=== PATIENT | female | born 1955 ===

== ENCOUNTER 2019-04-18 16:19 | Observation (INO) | payer OTHER, SELFPAY ==
[~2019-04-18 16:19] MED LIST: ADENOSINE 60 MG/20 ML VIAL ONE
[2019-04-18 17:50] LABS: ALT (SGPT) 23 U/L (8-55); AST (SGOT) 20 U/L (5-34); Albumin 4.3 g/dL (3.4-4.8); Alkaline Phosphatase 96 U/L (40-110); Anion Gap 10 mmol/L (10-20); BUN (Urea Nitrogen) 8 mg/dL (9.8-20.1); Bilirubin, Total 0.5 mg/dL (0.2-1.2); Calc. Creatinine Clearance 0 mL/min (70-130); Calcium 9.7 mg/dL (7.8-10.44); Carbon Dioxide 27 mmol/L (23-31); Chloride 108 mmol/L (98-107); Estimated GFR-MDRD 86; Glucose 124 mg/dL (80-115); Lipase 23 U/L (8-78); Potassium 4.1 mmol/L (3.5-5.1); Protein, Total 7.3 g/dL (6.0-8.3); Sodium 141 mmol/L (136-145)
--- NOTE | 2019-04-18 17:51 | CT ---
CT HEAD WITHOUT IV CONTRAST COMPARISON: None HISTORY: Headache. TECHNIQUE: Axial CT imaging at 5 mm intervals from vertex through skull base without contrast FINDINGS: There is no evidence of an acute infarction, hemorrhage, mass effect, or midline shift. The ventricul ar system is normal in size, shape, and position. Visualized paranasal sinuses are clear. Osseous structures appear intact. IMPRESSION: 1. No acute intracranial abnormality demonstrated.
--- NOTE | 2019-04-18 17:51 | RAD ---
EXAM: CHEST ONE VIEW HISTORY: Chest pain. Headache and weakness. Acid reflux. COMPARISON: None FINDINGS: The cardiac silhouette and pulmonary vasculature is within normal limits. The lungs are clear. The os seous structures are intact. IMPRESSION: No acute cardiopulmonary process.
[2019-04-18 17:53] LABS: #Basophils 0.1 thou/uL (0.0-0.2); #Lymphocytes 2.4 thou/uL (1.20-3.40); #Monocytes 0.4 thou/uL (0.11-0.59); #Neutrophils 3.7 thou/uL (1.40-6.50); %Basophils 1.1 % (0.0-1.0); %Eosinophils 0.2 % (0.0-10.0); %Lymphocytes 36.8 % (21.0-51.0); %Monocytes 5.6 % (0.0-10.0); %Neutrophils 56.3 % (42.0-75.0); Hemoglobin 13.8 g/dL (12.0-16.0); Mean Corpuscular HGB CONC 34.7 g/dL (32.0-36.0); Mean Corpuscular Hemoglobin 29.6 pg (27.0-31.0); Mean Corpuscular Volume 85.4 fL (78.0-98.0); Mean Platelet Volume 10.7 fL (7.4-10.4); Platelet Count 145 thou/uL (130-400); RBC Distribution Width 12.1 % (11.5-14.5); Red Blood Cell (RBC) Count 4.66 mill/uL (4.20-5.40); White Blood Cell (WBC) Count 6.6 thou/uL (4.8-10.8)
[2019-04-18] MEDS ORDERED: Nitroglycerin 0.4 MG TAB 1 EACH ONE (18:10)
[2019-04-18] MEDS ORDERED: Aspirin Chewable 81 MG TAB ONE (18:10)
[2019-04-18 18:43] LABS: Bacteria/HPF None Seen HPF (None Seen); Bilirubin Negative (Negative); Blood, Urine 1+ (Negative); Clarity Clear (Clear); Glucose, Urine (Dipstick) Normal (Negative); Leukocyte 75 Leu/uL (Negative); Nitrite Negative (Negative); Protein, Urine (Dipstick) Negative (Neg-Trace); Squamous Epithelial 0-3 HPF (0-3); Urobilinogen Normal mg/dL (Less than 2); WBC/HPF 0-3 HPF (0-3)
[2019-04-18] MEDS ORDERED: Acetaminophen 325 MG TAB ONE (18:45)
[2019-04-18 20:57] LABS: Troponin I 0.017 ng/mL (< 0.028)
[2019-04-18] MEDS ORDERED: Ondansetron PF 4 MG/2 ML Vial IVP PRN (21:56)
[2019-04-18] MEDS ORDERED: Acetaminophen 325 MG TAB PO PRN (21:56)
[2019-04-18] MEDS ORDERED: Acetaminophen 650 MG Suppository PR PRN (21:56)
[2019-04-18] MEDS ORDERED: Ondansetron ODT 4 MG TAB PO PRN (21:56)
[2019-04-18] MEDS ORDERED: Sodium Chloride 0.9% 1,000 ML IV SCH (22:00)
[2019-04-18] MEDS ORDERED: HumaLOG 300 UNITS/3 ML VIAL SC PRN ×2 (22:02)
[2019-04-18] MEDS ORDERED: Dextrose 50% Abboject 50 ML SYRINGE SLOW IVP PRN (22:02)
[2019-04-18] MEDS ORDERED: Dextrose 5% in Water 1,000 ML IV PRN (22:02)
[2019-04-18 22:08] VITALS: BMI 28.5
--- NOTE | 2019-04-18 22:49 | PDOC.HHP ---
Hospitalist HPI - History of Present Illness Headache and left chest pain History of Present Illness: Ms. Salgado reports having intermittent headaches for the last couple of days. Reports right sided chest pain and arm pain which she states was mild and describes it as a pressure. Unable to quantify it. States it lasted 5 min. Did not take anything for it. Also reports a cold sensation on the right side of her face and feeling tired/ generally weak. Denies spinning sensation but states she felt "drunk". Reports feeling like she would not be able to walk but family deny any ataxia or gait disturbance. No speech changes. Reports blurred vision that was brief. Does not know the timing of any of her symptoms. She saw her PCP yesterday and was advised to come to the ED if she felt badly again today. She states what prompted the visit to her PCP was having burning epigastric discomfort early hours yesterday morning at 3am. She was advised to increase her protonix to two tablets in the AM. No extremity numbness or weakness. At present she is completely asymptomatic. ED Course: Given Aspirin in the ED CT head done was normal. EKG unremarkable and initial troponin negative. Hospitalist ROS - Review of Systems Constitutional: reports: chills (one episode of chills this morning, said she felt cold). denies: fever, sweats, weakness, malaise, other Eyes: reports: other (eye heaviness, reports difficulty keeping her eyes open, denies facial drooping). denies: pain, vision change, conjunctivae inflammation , eyelid inflammation, redness ENT: denies: ear pain, ear discharge, nose pain, nose discharge, nose congestion , mouth pain, mouth swelling, throat pain, throat swelling, other Respiratory: denies: cough, dry, shortness of breath, hemoptysis, SOB with excertion, pleuritic pain, sputum, wheezing, other Cardiovascular: reports: chest pain (left sided chest pain and hand pain x 2 episodes), light headedness. denies: palpitations, orthopnea, paroxysmal noc. dyspnea, edema, other Gastrointestinal: denies: nausea, vomiting, abdominal pain, diarrhea, constipation, melena, hematochezia, other Genitourinary: denies: dysuria, frequency, incontinence, hematuria, retention, other Musculoskeletal: reports: hand pain (left wrist, states it was tender to touch but mild and has resolved). denies: neck pain, shoulder pain, arm pain, back pain, leg pain, foot pain, other Skin: denies: rash, lesions, brenna, bruising, other Neurological: denies: weakness, numbness, incoordination, change in speech, confusion, seizures, other Hospitalist History - Past Medical History Source: patient Cardiac: reports: HTN, Hyperlipidemia Gastrointestinal: reports: GERD, Gastritis Endocrine: reports: Diabetes - Past Surgical History Past Surgical History: reports: Tubal Ligation - Family History Family History: reports: no pertinent history - Social History Smoking Status: Never smoker Alcohol: reports: Rare Drugs: reports: none Living Situation: With Family Activity level: independent ambulation - Exam General Appearance: NAD Eye: PERRL ENT: normocephalic atraumatic, no oropharyngeal lesions, moist mucosa Neck: supple, symmetric, no JVD, no thyromegaly, no lymphadenopathy, no carotid bruit Heart: RRR, no murmur, no gallops, no rubs, normal peripheral pulses Respiratory: CTAB, no wheezes, no rales, no ronchi, normal chest expansion, no tachypnea, normal percussion Gastrointestinal: soft, non-tender, non-distended, normal bowel sounds, no palpable masses, no hepatomegaly, no splenomegaly, no bruit Extremities: no cyanosis, no clubbing, no edema Skin: normal turgor, no lesions, no rashes Neurological: cranial nerve grossly intact, normal sensation to touch, no weakness, no focal deficits, no new deficit Musculoskeletal: normal tone, normal strength, no muscle wasting Psychiatric: normal affect, normal behavior, A&O x 3 Hospitalist Results - Labs Result Diagrams: 04/18/19 17:21 04/18/19 17:21 Lab results: WBC 6.6 thou/uL (4.8-10.8) 04/18/19 17:21 Hgb 13.8 g/dL (12.0-16.0) 04/18/19 17:21 Hct 39.8 % (36.0-47.0) 04/18/19 17:21 MCV 85.4 fL (78.0-98.0) 04/18/19 17:21 Plt Count 145 thou/uL (130-400) 04/18/19 17:21 Neutrophils % 56.3 % (42.0-75.0) 04/18/19 17:21 Sodium 141 mmol/L (136-145) 04/18/19 17:21 Potassium 4.1 mmol/L (3.5-5.1) 04/18/19 17:21 Chloride 108 mmol/L (98-107) H 04/18/19 17:21 Carbon Dioxide 27 mmol/L (23-31) 04/18/19 17:21 BUN 8 mg/dL (9.8-20.1) L 04/18/19 17:21 Creatinine 0.69 mg/dL (0.6-1.1) 04/18/19 17:21 Glucose 124 mg/dL (80-115) H 04/18/19 17:21 Calcium 9.7 mg/dL (7.8-10.44) 04/18/19 17:21 Total Bilirubin 0.5 mg/dL (0.2-1.2) 04/18/19 17:21 AST 20 U/L (5-34) 04/18/19 17:21 ALT 23 U/L (8-55) 04/18/19 17:21 Alkaline Phosphatase 96 U/L (40-110) 04/18/19 17:21 Troponin I 0.017 ng/mL (< 0.028) 04/18/19 20:24 Serum Total Protein 7.3 g/dL (6.0-8.3) 04/18/19 17:21 Albumin 4.3 g/dL (3.4-4.8) 04/18/19 17:21 Lipase 23 U/L (8-78) 04/18/19 17:21 Urine Ketones Negative mg/dL (Negative) 04/18/19 18:23 Urine Blood 1+ (Negative) A 04/18/19 18:23 Urine Nitrite Negative (Negative) 04/18/19 18:23 Ur Leukocyte Esterase 75 Leigh Ann/uL (Negative) A 04/18/19 18:23 Urine RBC 4-6 HPF (0-3) A 04/18/19 18:23 Urine WBC 0-3 HPF (0-3) 04/18/19 18:23 Ur Squamous Epith Cells 0-3 HPF (0-3) 04/18/19 18:23 Urine Bacteria None Seen HPF (None Seen) 04/18/19 18:23 - Radiology Interpretation CT scan - head Status: report reviewed by me Hospitalist H&P A/P - Problem (1) Chest pain Code(s): R07.9 - CHEST PAIN, UNSPECIFIED Status: Acute (2) Headache Code(s): R51 - HEADACHE Status: Acute (3) Multiple complaints Code(s): R68.89 - OTHER GENERAL SYMPTOMS AND SIGNS Status: Acute (4) Dizziness Code(s): R42 - DIZZINESS AND GIDDINESS Status: Acute (5) HTN (hypertension) Code(s): I10 - ESSENTIAL (PRIMARY) HYPERTENSION Status: Acute (6) Diabetes mellitus Code(s): E11.9 - TYPE 2 DIABETES MELLITUS WITHOUT COMPLICATIONS Status: Acute (7) Hyperlipidemia Code(s): E78.5 - HYPERLIPIDEMIA, UNSPECIFIED Status: Acute (8) GERD (gastroesophageal reflux disease) Code(s): K21.9 - GASTRO-ESOPHAGEAL REFLUX DISEASE WITHOUT ESOPHAGITIS Status: Acute - Plan Plan: Continue to trend troponins. Stress test in AM, given comorbidities and last stress test 3 years ago. CTA head and neck given unusual complaints of dizziness and right sided face "coldness". Monitor blood glucose and initiate ISS. Resume home meds once verified. CODE STATUS FULL Surrogate decision maker: Frieda Richardson, her daughter
--- NOTE | 2019-04-18 23:01 | CT ---
NONCONTRAST CT HEAD CT ANGIOGRAM HEAD WITH IV CONTRAST AND 3D RECONSTRUCTION CT ANGIOGRAM NECK WITH IVC ONTRAST AND 3D RECONSTRUCTION 04/18/19 HISTORY: Dizziness and headache. Visual disturbances. COMPARISON: Noncontrast CT head on 04/18/[address] at [address] head. There is no evidence of a hemorrhage, acute infarction, mass effect or midline s hift. Ventricular system is normal in size, shape and position. There has been no interval change whe n compared to prior exam obtained earlier on this date. CT ANGIOGRAM HEAD: The right vertebral artery terminates in PICA. The distal left vertebral artery and basilar artery ar e patent. There are type origins of the bilateral posterior cerebral arteries which are patent. The bilateral middle cerebral and anterior cerebral arteries are patent. No focal stenosis or branch occlusion is seen. No aneurysm is seen within the limitations of the technique of this exam. CT ANGIOGRAM NECK: There is a common origin of the left common carotid artery and innominate artery which are patent. Gr eat vessels at the aortic arch are otherwise patent. The visualized left subclavian artery as well as right subclavian artery are patent. The innominate artery and bilateral common carotid arteries are patent. The bilateral internal and external carotid arteries are patent. The left vertebral artery is dominant and patent. The right vertebral artery is smaller in caliber bu t also patent and terminates in PICA. IMPRESSION: 1. No acute intracranial abnormalities demonstrated. 2. Patent bilateral internal and external carotid arteries. 3. Dominant and patent left vertebral artery. The right vertebral artery is patent but terminate s in PICA. 4. No focal stenosis or branch occlusion is seen involving the [place] or [place] ar system. 5. Curvilinear area of decreased attenuation seen within the upper thoracic trachea which likely represents a small amount of debris. POS: [facility]
[2019-04-18 23:57] LABS: Troponin I 0.012 ng/mL (< 0.028)
[2019-04-19 05:21] LABS: #Basophils 0.1 thou/uL (0.0-0.2); #Lymphocytes 2.6 thou/uL (1.20-3.40); #Monocytes 0.5 thou/uL (0.11-0.59); #Neutrophils 2.4 thou/uL (1.40-6.50); %Basophils 0.9 % (0.0-1.0); %Eosinophils 0.1 % (0.0-10.0); %Lymphocytes 47.2 % (21.0-51.0); %Monocytes 8.7 % (0.0-10.0); %Neutrophils 43.1 % (42.0-75.0); Hemoglobin 12.4 g/dL (12.0-16.0); Mean Corpuscular HGB CONC 34.8 g/dL (32.0-36.0); Mean Corpuscular Hemoglobin 29.8 pg (27.0-31.0); Mean Corpuscular Volume 85.6 fL (78.0-98.0); Mean Platelet Volume 10.5 fL (7.4-10.4); Platelet Count 138 thou/uL (130-400); Red Blood Cell (RBC) Count 4.15 mill/uL (4.20-5.40); White Blood Cell (WBC) Count 5.5 thou/uL (4.8-10.8)
[2019-04-19 05:45] LABS: Anion Gap 8 mmol/L (10-20); BUN (Urea Nitrogen) 9 mg/dL (9.8-20.1); Calc. Creatinine Clearance 102 mL/min (70-130); Calcium 8.9 mg/dL (7.8-10.44); Carbon Dioxide 25 mmol/L (23-31); Cardiac Risk 3.1 (Less than 4.5); Chloride 114 mmol/L (98-107); Cholesterol 130 mg/dl (< 200 Desired); Estimated GFR-MDRD 89; Glucose 117 mg/dL (80-115); HDL Cholesterol 42 mg/dL (>60 Neg Risk); LDL Cholesterol, Calculated 72 mg/dL; Potassium 3.4 mmol/L (3.5-5.1); Sodium 144 mmol/L (136-145); Triglycerides 81 mg/dL (Less than 150)
[2019-04-19] MEDS ORDERED: Levothyroxine Sodium 100 MCG TAB PO SCH (06:00)
[2019-04-19] MEDS ORDERED: Losartan 25 MG TAB PO SCH (09:00)
[2019-04-19] MEDS ORDERED: Aspirin Chewable 81 MG TAB PO SCH (09:00)
[2019-04-19] MEDS ORDERED: FLU VACC QS2019-20(6MOS UP)/PF 60 MCG/0.5 ML SYRINGE IM ONE (09:00)
--- NOTE | 2019-04-19 11:18 | NM ---
Radionucleotide stress and rest myocardial perfusion scan with CT attenuation correction and SPECT im aging Left ventricular wall motion waist and ejection fraction HISTORY: Chest pain. FINDINGS: Homogeneous uptake of radiotracer throughout the left ventricular myocardium. No focal perf usion defect or reversibility. QGS analysis of gated SPECT images shows no focal wall motion abnormalities. Ejection fraction calcul ated at greater than 80%. IMPRESSION: Normal exam.
[2019-04-19 12:41] VITALS: BP 132/63; TEMP 97.7
--- NOTE | 2019-04-20 15:24 | DIS ---
DATE OF ADMISSION: 04/18/2019 DATE OF DISCHARGE: 04/19/2019 DISCHARGE DISPOSITION: To home. PRIMARY DISCHARGE DIAGNOSES: Headache, chest pain which is noncardiac. PROCEDURES DONE DURING HOSPITALIZATION: CT angio of head and neck with IV contrast done showed no acute intracranial abnormalities. No focal stenosis or branch occlusion seen. Chest x-ray, no acute cardiopulmonary abnormalities. CT brain without contrast done showed no acute intracranial abnormality. Nuclear stress test done showed normal exam with ejection fraction of 80%. Echo with 2D Doppler showed EF of 55% to 60%. No thrombus was seen in the cardiac chambers. Respiratory virus panel PCR was negative. Hemoglobin and hematocrit 12 and 35, platelet count 138 , white count of 5, total cholesterol 130, triglycerides 81, LDL 72, HDL 42, BUN 9 , creatinine 0.6. UA is positive for UTI. DISCHARGE MEDICATIONS: 1. Ciprofloxacin 500 mg p.o. twice daily for 3 days. 2. Actos 7.5 mg p.o. daily. 3. Omeprazole 40 mg twice daily. 4. Losartan 100 mg daily. 5. Levothyroxine 100 mcg p.o. daily. ALLERGIES: NO KNOWN DRUG ALLERGIES. DISCHARGE PLAN: The patient to find a primary care physician in [place] and follow up in 1 week or she needs to go to [facility] in [place] and see her physician there in 1 week. BRIEF COURSE DURING HOSPITALIZATION: The patient initially came in with complaints of intermittent headaches and right-sided chest pain. In view of multiple risk factors, the patient was placed under observation on telemetry. A complete neurologic workup was negative. Nuclear stress test done showed no reversible ischemia. She remained hemodynamically stable. She needs to follow up with her primary care physician in 1 week. Please note, I have seen and examined the patient on the day of discharge. Job ID: [id number] [facility]
== END 2019-04-19 14:35 | disposition home or self-care (01) ==
LOC: ERS 16:19 → 2SW 19:35
PROVIDERS: ADMIT Hospitalist; ATTEND Hospitalist
DX: R07.89 Other chest pain (principal); R51 Headache; I10 Essential (primary) hypertension; E11.9 Type 2 diabetes mellitus without complications; E03.9 Hypothyroidism, unspecified; E78.00 Pure hypercholesterolemia, unspecified; E78.5 Hyperlipidemia, unspecified; K21.9 Gastro-esophageal reflux disease without esophagitis; Z79.899 Other long term (current) drug therapy
CPT/HCPCS: 36415; 36416; 70450; 70496; 70498; 71045; 78452; 80048; 80053; 80061; 81003; 81015; 83690; 83735; 84443; 84484; 85025; 87633; 90471; 90686; 93005; 93017; 93306; 96360; 96361; A9500; G0008; G0378; J0153